=== PATIENT | male | born 1965 | race Caucasian/White ===

== ENCOUNTER 2016-08-11 14:44 | Emergency (ER) | payer OTHER, MEDICAID ==
[~2016-08-11] VITALS: Ht 200.7 cm; Wt 90.0 kg
[~2016-08-11 14:44] MED LIST: ATEN-138 PO; ATOR40TA68 PO; DEXL60CA2 PO; DOLU50TA PO; DRON2.5C10 PO; EMTR1TAB16 PO; Erythromycin Base (Ec) PO; FLUC100T39 PO; Hydrocodone/Apap (10/325) PO; LORA1TAB PO; ONDA4TAB14 PO; PROC5TAB9 PO
[2016-08-11 14:49] VITALS: Ht 200.7 cm; Wt 90.0 kg
--- NOTE | 2016-08-11 15:24 | ERD ---
ER Documentation Chief Complaint Date/Time DATE: 08/11/16 TIME: 15:19 Chief Complaint right ankle pain/swelling HPI Patient is a 51-year-old male with past medical history of HIV, hypertension who presents to the emergency department for right ankle pain and swelling 2 weeks. Patient states that his symptoms feel similar to the time he was diagnosed with cellulitis. Patient reports pain with ambulating to the pressure of his foot. Patient also states that his ankle feels "hot and swollen inside." Patient denies any recent increased salt intake, meat intake or alcohol use. Patient denies any falls or trauma. Patient denies any fevers or chills. Patient states he did see his primary care physician 2 weeks ago and has been taking anti-inflammatory intermittently with no relief of symptoms. ROS All systems reviewed and are negative except as per history of present illness. Medications Home Meds Active Scripts Indomethacin* (Indocin*) 25 Mg Capsule, 25 MG PO Q8 for 5 Days, CAP Prov:ABRIL SULLIVAN PA-C 08/11/16 Ondansetron (Ondansetron Odt) 4 Mg Tab.rapdis, 4 MG PO Q6H Y for NAUSEA AND/OR VOMITING, #30 TAB Prov:RAÚL WAYNE 01/18/16 [Hydrocodone/Apap (10/325)] 1 TAB TAB No Conflict Check, 2 TAB PO Q4H Y for PAIN , #30 Prov:RAÚL WAYNE 01/18/16 Fluconazole* (Fluconazole*) 100 Mg Tablet, 100 MG PO DAILY for 28 Days, TAB Prov:RAÚL WAYNE 01/18/16 [Erythromycin Base (Ec)] 250 MG TABEC No Conflict Check, 250 MG PO Q6 for 30 Days Prov:RAÚL WAYNE 01/18/16 Reported Medications Emtricitabine/Tenofov Alafenam (Descovy 200-25 mg Tablet) 1 Each Tablet, 1 EACH PO, TAB 01/13/16 Dolutegravir Sodium (Tivicay) 50 Mg Tablet, 50 MG PO DAILY, TAB 01/13/16 Prochlorperazine* (Prochlorperazine*) 5 Mg Tablet, 5 MG PO DAILY Y for NAUSEA, TAB 01/13/16 Lorazepam* (Lorazepam*) 1 Mg Tablet, 1 MG PO QID, #30 TAB 01/13/16 Dexlansoprazole (Dexilant) 60 Mg , 60 MG PO DAILY 02/07/13 Dronabinol* (Marinol*) 2.5 Mg Capsule, 2.5 MG PO BID 01/24/13 Atenolol (Tenormin) 25 Mg Tab, 10 MG PO DAILY 01/24/13 Atorvastatin* (Atorvastatin*) 40 Mg Tablet, 40 MG PO DAILY 01/24/13 Allergies Allergies: Coded Allergies: prednisone (Verified Allergy, Mild, RASH, 01/13/16) propranolol HCl (Verified Allergy, Mild, RASH, 01/13/16) emtricitabine (Verified Allergy, Unknown, 01/14/16) tenofovir (Verified Allergy, Unknown, 01/14/16) PMhx/Soc History of Surgery: No Anesthesia Reaction: No Hx Neurological Disorder: No Hx Respiratory Disorders: No Hx Cardiac Disorders: Yes (htn,hypercholesterol) Hx Psychiatric Problems: Yes (anxiety,depression,) Hx Miscellaneous Medical Probl: Yes (HIV on HAART, htn, GERD) Hx Alcohol Use: Yes Hx Substance Use: No Hx Tobacco Use: No Smoking Status: Former smoker FmHx Family History: No diabetes Physical Exam Vitals Vital Signs Date Time Temp Pulse Resp B/P Pulse Ox O2 Delivery O2 Flow Rate FiO2 08/11/16 14:49 98.1 78 18 125/78 99 Physical Exam GENERAL: Well-developed, well-nourished male. Appears in no acute distress. HEAD: Normocephalic, atraumatic. EYES: Pupils are equally reactive bilaterally. EOMs grossly intact. No conjunctival erythema. ENT: Moist mucous membranes. No uvula deviation. No kissing tonsils. NECK: Supple. No meningismus. Normal range of motion of the neck. LUNG: Clear to auscultation bilaterally. No rhonchi, wheezing, rales or coarse breath sounds. HEART: Regular rate and rhythm. No murmurs, rubs or gallops. EXTREMITIES: Equal pulses bilaterally. No peripheral clubbing, cyanosis or edema. No unilateral leg swelling. NEUROLOGIC: Alert and oriented. Moving all four extremities without any difficulty. Normal speech. Steady gait. SKIN: Normal color. Warm and dry. No rashes or lesions. RIGHT ANKLE: Erythema and swelling noted to the patient's ankle. Ankle does feel warm to touch compared to left ankle. Skin intact. Full ROM. No crepitus. Tender to palpation of the medial aspect of the ankle. Nontender palpation of the distal fibula/ tibia and foot. Sensation intact to light touch. Neurovascularly intact. (Able to plantarflex, dorsiflex, laurie foot, invert foot , raise big toe.) 2+ DP and DT pulses. Result Diagram: 08/11/16 1530 Results 24 hrs Laboratory Tests Test 08/11/16 15:30 White Blood Count 4.210^3/ul Red Blood Count 3.9410^6/ul Hemoglobin 14.0g/dl Hematocrit 40.5% Mean Corpuscular Volume 102.8fl Mean Corpuscular Hemoglobin 35.5pg Mean Corpuscular Hemoglobin Concent 34.6g/dl Red Cell Distribution Width 16.0% Platelet Count 4410^3/UL Mean Platelet Volume 9.8fl Neutrophils % 74.0% Lymphocytes % 21.0% Monocytes % 2.0% Eosinophils % 3.0% Neutrophils # 3.110^3/ul Lymphocytes # 0.910^3/ul Monocytes # 0.110^3/ul Eosinophils # 0.110^3/ul Platelet Estimate PLT APPEAR DECREASED Large Platelets OCCASIONAL Erythrocyte Sedimentation Rate 4mm/Hr Uric Acid 8.3mg/dl C-Reactive Protein < 0.5mg/dl Procedures/MDM ED COURSE: The patient was stable throughout ED course. I kept the patient and/or family informed of laboratory and diagnostic imaging results throughout the ED course. DIAGNOSTIC IMAGING: Read by radiologist. DIAGNOSTIC IMAGING REPORT Patient: LEN ARENAS : 1965 Age: 51 Sex: M MR #: [id number] DOS: 08/11/16 1516 Ordering MD: ABRIL SULLIVAN PA-C Location: [facility] Room/Bed: PROCEDURE: XR Ankle. CLINICAL INDICATION: Ankle pain and swelling TECHNIQUE: AP, oblique and lateral views of the right ankle were performed. COMPARISON: None available FINDINGS: There is diffuse soft tissue swelling. No fracture is identified. Osseous structures and joint spaces appear grossly intact. IMPRESSION: Soft tissue swelling, without acute osseous abnormality identified. RPTAT: VV .Dinh Yin MD, MD Date Time Electronically viewed and signed by .Dinh Yin MD, MD on 08/11/2016 16:13 .O/ CC: ABRIL SULLIVAN PA-C MEDICAL DECISION MAKING: This is a 51-year-old male with past medical history of HIV and hypertension who presents with right ankle pain and swelling 2 weeks. Vital signs were reviewed. Patient was afebrile. CBC showed that patient had a white count of 4.2. Patient's platelet counts were noted to be 44K. This is likely due to patient's history of HIV. I discussed these findings with my supervising physician Dr. Farris, agrees that this is likely due to patient's history of HIV. Patient CRP was noted to be less than 0.5. Patients uric acid level was noted to be 8.3. ESR was 4. X-ray imaging of the patient's ankle showed soft tissue swelling without any acute osseous abnormality identified. At this time , patient's presentation is most consistent with gout. Given these findings, the patient's presentation is most consistent with gout. I have a much lower clinical concern for ankle dislocation, ankle fracture, tibia fracture, fibula fracture, osteomyelitis, septic joint, osteoarthritis, DVT, compartment syndrome or ankle sprain. At this time, unable to rule out any tendon and ligament injuries. PRESCRIPTIONS: Indomethacin DISCHARGE: At this time, patient is stable for discharge and outpatient management. RICE therapy and ROM exercises were advised to avoid stiffness. I have instructed the patient to follow-up with his/her primary care physician in 1-2 days. I have discussed with the patient the possibility of needing to see an unemployment specialist for further workup and imaging if the pain persists. I have instructed the patient to promptly return to the ER for any new or worsening symptoms including increased pain, swelling, redness, warmth or fever. The patient and/or family expressed understanding of and agreement with this plan. All questions were answered. Home care instructions were provided. Departure Diagnosis: Primary Impression: Ankle swelling Laterality: right Qualified Code: M25.471 - Ankle swelling, right Condition: Stable Referrals: [facility] Additional Instructions: Call your primary care doctor TOMORROW for an appointment during the next 1-2 days.See the doctor sooner or return here if your condition worsens before your appointment time. ABRIL SULLIVAN PA-C Aug 11, 2016 15:24
[2016-08-11 15:38] LABS: ADD SCAN DIFF NO
[2016-08-11 15:40] LABS: ABNORMAL IP MESSAGE 1; HEMATOCRIT 40.5 % (42.0-52.0); MEAN CORPUSCULAR HEMOGLOBIN 35.5 pg (29.0-33.0); MEAN CORPUSCULAR HGB CONC 34.6 g/dl (32.0-37.0); MEAN CORPUSCULAR VOLUME 102.8 fl (82.0-101.0); MEAN PLATELET VOLUME 9.8 fl (7.4-10.4); PLATELET COUNT 44 10^3/UL (140-415); RED BLOOD COUNT 3.94 10^6/ul (4.70-6.10); WHITE BLOOD COUNT 4.2 10^3/ul (4.8-10.8)
[2016-08-11 16:02] LABS: URIC ACID 8.3 mg/dl (3.1-7.9)
[2016-08-11 16:08] LABS: C-REACTIVE PROTEIN < 0.5 mg/dl (0.0-0.9)
[2016-08-11 16:14] LABS: EOSINOPHILS # 0.1 10^3/ul (0.0-0.5); LYMPHOCYTES # 0.9 10^3/ul (0.8-2.9); MONOCYTE # 0.1 10^3/ul (0.3-0.9); NEUTROPHIL # 3.1 10^3/ul (1.6-7.5)
--- NOTE | 2016-08-11 16:14 | RADRPT ---
PROCEDURE: XR Ankle. CLINICAL INDICATION: Ankle pain and swelling TECHNIQUE: AP, oblique and lateral views of the right ankle were performed. COMPARISON: None available FINDINGS: There is diffuse soft tissue swelling. No fracture is identified. Osseous structures and joint spa natalie appear grossly intact. IMPRESSION: Soft tissue swelling, without acute osseous abnormality identified. RPTAT: VV .Dinh Yin MD, MD Date Time Electronically viewed and signed by .Dinh Yin MD, MD on 08/11/2016 16:13 .O/
[2016-08-11 16:16] LABS: PLATELET ESTIMATE PLT APPEAR DECREASED
[2016-08-11] MEDS ORDERED: INDO25CA25 PO (17:01)
== END 2016-08-11 17:14 | disposition home or self-care (01) ==
LOC: FTE 14:44
DX: M25.471 Effusion, right ankle (principal); I10 Essential (primary) hypertension; Z87.891 Personal history of nicotine dependence
CPT/HCPCS: 84560; 85025; 85651; 86140

== ENCOUNTER 2017-03-09 09:07 | Emergency (ER) | END 2017-03-09 13:25 | disposition home or self-care (01) ==

== ENCOUNTER 2017-03-21 01:35 | Inpatient (IN) | END 2017-03-25 17:58 | disposition home or self-care (01) | DRG 602 ==